=== PATIENT | female | born 1965 ===

== ENCOUNTER 2017-07-25 06:47 | Day surgery (SDC) | payer OTHER ==
[2017-07-21 12:05] VITALS: BMI 33.6
[2017-07-25] MEDS ORDERED: ceFAZolin 1 gm in NS 1 GM/100 ML BAG IVPB ONE (08:32)
[2017-07-25] MEDS ORDERED: Lidocaine/Epinephrine 1% 1:100000 10 ML IJ ONE (08:32)
[2017-07-25] MEDS ORDERED: Midazolam 2 MG/2 ML VIAL ONE ×2 (08:53→09:22)
[2017-07-25] MEDS ORDERED: Lactated Ringer's 1,000 ML IV ONE (08:55)
[2017-07-25] MEDS ORDERED: Bacitracin Ointment 30 GM TUBE ONE (09:08)
[2017-07-25] MEDS ORDERED: HYDROmorphone 0.5 mg/0.5 ml ISec IVP PRN (10:05)
--- NOTE | 2017-07-25 10:10 | PCM.SURG1 ---
Surgeon's Initial Post Op Note - Surgeon's Notes Surgeon: Dr. Kim Perfusionist: Sheri Goodson PGY2 Pre-Operative Diagnosis: scalp lesion Operative Findings: large subcutaneous cystic structure Post-Operative Diagnosis: same Operation Performed: excision of scalp cyst Specimen/Specimens Removed: scalp cyst Estimated Blood Loss: EBL {In ML}: 5 Date of Surgery/Procedure: 07/25/17 Time of Surgery/Procedure: 09:00
[2017-07-25 12:51] VITALS: BP 91/58; PULSE 69; RESP 16; TEMP 97.7; O2SAT 97
--- NOTE | 2017-07-25 14:20 | OP ---
PROCEDURE DATE: 07/25/2017 PREOPERATIVE DIAGNOSIS: Lipoma, possible sebaceous cyst of scalp. POSTOPERATIVE DIAGNOSIS: Sebaceous cyst of scalp, 7 cm. SURGEON: Perez Kim Jr., MD RECORDS OFFICER: Dr. Goodson. ANESTHESIA ADMINISTERED BY: Huong Saunders MD TYPE OF ANESTHESIA: Local with sedation. INDICATION: The patient is a young woman with a large painful sebaceous cyst bigger than a golf ball, but not quite the size of a lemon on the back of her scalp. OPERATIVE FINDINGS: Initially, it was felt like it was a lipoma; however, on a detailed exam, there was a sebaceous cyst, which was removed intact. After hemostasis was obtained, the wound was closed with 5-0 nylon sutures. Xylocaine with epinephrine was used as a local anesthetic agent. Blood loss was 10 mL. Operation, excision of 7 cm sebaceous cyst, scalp. Perez Kim Jr., MD
== END 2017-07-25 12:28 | disposition home or self-care (01) ==
LOC: C.SDS 06:47
PROVIDERS: ATTEND Surgery Vascular Surgery
DX: L72.12 Trichodermal cyst (principal); L72.11 Pilar cyst; I10 Essential (primary) hypertension; E78.5 Hyperlipidemia, unspecified
CPT/HCPCS: 11426; 88305; J0690; J2250; J2765; J3010; J7120